=== PATIENT | female | born 1990 | race Caucasian/White ===

== ENCOUNTER 2021-05-04 14:46 | Inpatient (IN) | payer MEDICAID, OTHER ==
[2021-05-02 13:47] LABS: Hemoglobin 13.1 g/dL (12.0-15.5); Mean Corpuscular HGB CONC 33.1 g/dL (32.0-36.0); Mean Corpuscular Hemoglobin 28.7 pg (27.0-33.0); Mean Corpuscular Volume 86.8 fl (81.6-98.3); Mean Platelet Volume 11.2 fl (7.4-10.4); Platelet Count 268 10x3/uL (150-450); RBC Distribution Width 13.8 % (11.5-14.5); Red Blood Cell (RBC) Count 4.56 10x6/uL (3.90-5.03); White Blood Cell (WBC) Count 10.6 10x3/uL (3.5-10.5)
[2021-05-02 14:10] LABS: Hep B Surf Ag Non-Reactive S/CO (NonReactive)
[2021-05-02 14:11] LABS: Syphilis Antibody Nonreactive (Nonreactive); Syphilis Antibody Index 0.04 S/CO (<1.00 Non-Reactive)
[2021-05-02 14:13] LABS: HBSAg Index 0.17 S/CO (0-0.99)
[2021-05-04] MEDS ORDERED: Famotidine/PF 20 mg/2ml Vial SLOW IVP PRN (15:51)
[2021-05-04] MEDS ORDERED: hydrALAZINE 20 MG/ML VIAL SLOW IVP PRN (15:51)
[2021-05-04] MEDS ORDERED: Ondansetron PF 4 MG/2 ML Vial IVP PRN ×2 (15:51→16:55)
[2021-05-04] MEDS ORDERED: Promethazine HCl 25 MG/ML VIAL IM PRN ×2 (15:51→16:55)
[2021-05-04] MEDS ORDERED: Bicitra 30 ML UDCUP PO PRN (15:51)
[2021-05-04 15:53] VITALS: BMI 32.1
[2021-05-04] MEDS ORDERED: ceFAZolin 2 GM/Dextrose 50 ML 2 GM in Premix Bag 1 BAG IVPB SCH (16:00)
[2021-05-04] MEDS ORDERED: Lactated Ringer's 1,000 ML IV SCH (16:00)
[2021-05-04] MEDS ORDERED: Fentanyl 100 MCG/2 ML VIAL SLOW IVP PRN (16:55)
[2021-05-04] MEDS ORDERED: Naloxone HCl 0.4 mg/ml Vial IVP PRN ×2 (16:55)
[2021-05-04] MEDS ORDERED: Ketorolac Tromethamine 30 MG/ML VIAL IVP PRN (16:55)
[2021-05-04] MEDS ORDERED: L&D-Morphine 4 MG/ML VIAL SLOW IVP PRN (16:55)
[2021-05-04] MEDS ORDERED: Naloxone HCl 0.4 mg/ml Vial IV PRN (16:55)
[2021-05-04] MEDS ORDERED: Meperidine HCl/PF 25 MG/ML VIAL SLOW IVP PRN (16:55)
[2021-05-04] MEDS ORDERED: Promethazine HCl 25 MG SUPP PR PRN (16:55)
[2021-05-04] MEDS ORDERED: diphenhydrAMINE 50 MG/ML VIAL IVP PRN (16:55)
[2021-05-04] MEDS ORDERED: Ondansetron HCl/PF 4 MG/2 ML Vial IVP PRN (16:55)
[2021-05-04] MEDS ORDERED: Hydrocerin (Eucerin) Cream 120 gm Jar TOP PRN (16:55)
[2021-05-04] MEDS ORDERED: Communication Order-Pharmacy FS SCH (17:00)
[2021-05-04] MEDS ORDERED: Ketorolac Tromethamine 30 MG/ML VIAL IVP SCH (17:00)
[2021-05-04] MEDS ORDERED: Oxytocin 10 UNITS/ML VIAL ONE (18:10)
[2021-05-04] MEDS ORDERED: Ondansetron PF 4 MG/2 ML Vial ONE (18:10)
[2021-05-04] MEDS ORDERED: Phenylephrine 10 MG/ML VIAL ONE (18:10)
[2021-05-04] MEDS ORDERED: Morphine PF 10 MG/10 ML VIAL ONE (18:10)
[2021-05-04] MEDS ORDERED: Phenylephrine 40 MG/NS 250 ML 250 ML ONE (18:11)
[2021-05-04] MEDS ORDERED: Ketorolac Tromethamine 30 MG/ML VIAL ONE (18:45)
[2021-05-04] MEDS ORDERED: Erythromycin Base 0.5% Oint 1 GM TUBE ONE (19:45)
[2021-05-04] MEDS ORDERED: Phytonadione Neonatal 1 MG/0.5 ML AMP ONE (19:45)
[2021-05-04] MEDS ORDERED: NS w/ Oxytocin 30 units 500 ML ONE (21:33)
[2021-05-04] MEDS ORDERED: Simethicone Chewable 80 MG TAB PO PRN (22:41)
[2021-05-04] MEDS ORDERED: Boostrix 0.5 ML (Tdap) VIAL IM ONE (22:41)
[2021-05-04] MEDS ORDERED: Lanolin Ointment 7 GM TUBE TOP PRN (22:41)
[2021-05-04] MEDS ORDERED: Acetaminophen 325 MG TAB PO PRN (22:41)
[2021-05-04] MEDS ORDERED: Bisacodyl 10 MG SUPP PR PRN (22:41)
[2021-05-04] MEDS ORDERED: diphenhydrAMINE 25 MG CAP PO PRN (22:41)
[2021-05-04] MEDS: Docusate 100 MG CAP PO SCH (23:00)
[2021-05-04] MEDS: Ferrous Sulfate 325 MG TAB PO SCH (23:00)
[2021-05-05 04:46] LABS: Hemoglobin 11.4 g/dL (12.0-15.5); Mean Corpuscular HGB CONC 34.3 g/dL (32.0-36.0); Mean Corpuscular Hemoglobin 29.6 pg (27.0-33.0); Mean Corpuscular Volume 86.2 fl (81.6-98.3); Mean Platelet Volume 10.4 fl (7.4-10.4); Platelet Count 175 10x3/uL (150-450); RBC Distribution Width 13.5 % (11.5-14.5); Red Blood Cell (RBC) Count 3.85 10x6/uL (3.90-5.03); White Blood Cell (WBC) Count 11.1 10x3/uL (3.5-10.5)
[2021-05-05] MEDS ORDERED: HYDROcodone/Acetaminophen 5/325 mg Tablet PO PRN (05:00)
[2021-05-05] MEDS ORDERED: Acetaminophen 325 MG TAB PO PRN (07:34)
[2021-05-05] MEDS: Ferrous Sulfate 325 MG TAB PO SCH ×2 (07:44→21:41)
[2021-05-05] MEDS: Prenatal Vitamin 1 TAB PO SCH (08:35)
[2021-05-05] MEDS: Polyethylene Glycol 3350 17 GM Packet PO SCH (08:35)
[2021-05-05] MEDS: Docusate 100 MG CAP PO SCH ×2 (08:35→21:37)
[2021-05-05] MEDS: HYDROcodone/Acetaminophen 5/325 mg Tablet PO PRN ×2 (08:40→14:36)
[2021-05-05] MEDS: Ibuprofen 800 MG TAB PO SCH ×2 (14:36→21:37)
[2021-05-06] MEDS: Ibuprofen 800 MG TAB PO SCH (05:51)
[2021-05-06] MEDS: Ferrous Sulfate 325 MG TAB PO SCH (07:39)
[2021-05-06 08:17] VITALS: BP 100/55; TEMP 97.4
[2021-05-06] MEDS: Docusate 100 MG CAP PO SCH (08:33)
[2021-05-06] MEDS: Prenatal Vitamin 1 TAB PO SCH (08:34)
[2021-05-06] MEDS: HYDROcodone/Acetaminophen 5/325 mg Tablet PO PRN (08:34)
[2021-05-06] MEDS: Polyethylene Glycol 3350 17 GM Packet PO SCH (08:36)
== END 2021-05-06 12:54 | disposition home or self-care (01) | DRG 788 ==
LOC: CSHLD 14:46 → CSHPP 22:23
PROVIDERS: ADMIT Student in an Organized Health Care Education/Training Program; ATTEND Student in an Organized Health Care Education/Training Program
PROC: 10D00Z1 Extraction of Products of Conception, Low, Open Approach (ICD-10-PCS; principal; 2021-05-04)
DX: O34.211 Maternal care for low transverse scar from previous cesarean delivery (principal); Z3A.39 39 weeks gestation of pregnancy; Z37.0 Single live birth; O24.425 Gestational diabetes mellitus in childbirth, controlled by oral hypoglycemic drugs; Z79.84 Long term (current) use of oral hypoglycemic drugs; O99.824 Streptococcus B carrier state complicating childbirth; Z90.49 Acquired absence of other specified parts of digestive tract; Z79.899 Other long term (current) drug therapy; O34.13 Maternal care for benign tumor of corpus uteri, third trimester; D25.9 Leiomyoma of uterus, unspecified; O69.81X0 Labor and delivery complicated by cord around neck, without compression, not applicable or unspecified
CPT/HCPCS: 36415; 36416; 85027; 86780; 86850; 86900; 86901; 87340; J1885; J2274; J2370; J2405; J2550; J2590

== ENCOUNTER 2022-05-24 12:14 | Inpatient (IN) | payer MEDICAID, OTHER, SELFPAY ==
[2022-05-24] MEDS: Lactated Ringer's 1,000 ML IV SCH ×2 (12:43→13:22)
[2022-05-24 12:44] VITALS: BMI 33.2
[2022-05-24] MEDS ORDERED: Acetaminophen 500 MG TAB PO PRN (13:01)
[2022-05-24] MEDS ORDERED: Bicitra 30 ML UDCUP PO PRN (13:01)
[2022-05-24] MEDS ORDERED: Docusate 100 MG CAP PO PRN (13:01)
[2022-05-24] MEDS ORDERED: Diphenoxylate HCl/Atropine Tablet PO PRN (13:01)
[2022-05-24] MEDS ORDERED: hydrALAZINE 20 MG/ML VIAL SLOW IVP PRN ×2 (13:01→19:33)
[2022-05-24] MEDS ORDERED: Methylergonovine 0.2 MG/ML VIAL IM PRN (13:01)
[2022-05-24] MEDS ORDERED: Misoprostol 200 MCG TAB PR PRN (13:01)
[2022-05-24] MEDS ORDERED: Famotidine/PF 20 mg/2ml Vial SLOW IVP PRN (13:01)
[2022-05-24] MEDS ORDERED: Ondansetron PF 4 MG/2 ML Vial IVP PRN ×2 (13:01→17:00)
[2022-05-24] MEDS ORDERED: Tranexamic Acid 1,000 MG in Sodium Chloride 0.9% 250 ML 250 ML IVPB PRN (13:01)
[2022-05-24] MEDS ORDERED: Carboprost 250 MCG/ML AMP IM PRN (13:01)
[2022-05-24] MEDS ORDERED: Promethazine HCl 25 MG/ML VIAL IM PRN ×2 (13:01→17:00)
[2022-05-24] MEDS ORDERED: HYDROcodone/Acetaminophen 5/325 mg Tablet PO PRN (13:08)
[2022-05-24] MEDS ORDERED: Tranexamic Acid 1,000 MG/10 ML VIAL IVP PRN (13:12)
[2022-05-24] MEDS ORDERED: CEFAZOLIN 2 GM in Sodium Chloride 0.9% 100 ML IVPB SCH (13:15)
[2022-05-24] MEDS ORDERED: NS w/ Oxytocin 30 units 500 ML IV SCH (13:15)
[2022-05-24 13:30] LABS: Hemoglobin 11.2 g/dL (12.0-15.5); Mean Corpuscular HGB CONC 32.8 g/dL (32.0-36.0); Mean Corpuscular Hemoglobin 28.2 pg (27.0-33.0); Mean Corpuscular Volume 85.9 fl (81.6-98.3); Mean Platelet Volume 10.4 fl (7.4-10.4); Platelet Count 297 10x3/uL (150-450); RBC Distribution Width 13.4 % (11.5-14.5); Red Blood Cell (RBC) Count 3.97 10x6/uL (3.90-5.03)
[2022-05-24] MEDS ORDERED: Morphine PF 10 MG/10 ML VIAL ONE (14:15)
[2022-05-24] MEDS ORDERED: Famotidine/PF 20 mg/2ml Vial ONE (14:15)
[2022-05-24] MEDS ORDERED: Oxytocin 10 UNITS/ML VIAL ONE (14:17)
[2022-05-24] MEDS ORDERED: Ondansetron PF 4 MG/2 ML Vial ONE ×2 (14:17→16:04)
[2022-05-24] MEDS ORDERED: Phenylephrine 40 MG/NS 250 ML 250 ML ONE (14:18)
[2022-05-24 14:44] LABS: SARS-CoV-2 NAA Rapid Test Not Detected (NotDetected)
[2022-05-24] MEDS ORDERED: Ketorolac Tromethamine 30 MG/ML VIAL ONE (15:59)
[2022-05-24] MEDS ORDERED: Promethazine HCl 25 MG SUPP PR PRN (17:00)
[2022-05-24] MEDS ORDERED: Moisturizing Cream (Eucerin) 113 GM JAR TOP PRN (17:00)
[2022-05-24] MEDS ORDERED: Meperidine HCl/PF 25 MG/ML VIAL SLOW IVP PRN (17:00)
[2022-05-24] MEDS ORDERED: Ketorolac Tromethamine 30 MG/ML VIAL IVP SCH (17:00)
[2022-05-24] MEDS ORDERED: Fentanyl 100 MCG/2 ML VIAL SLOW IVP PRN (17:00)
[2022-05-24] MEDS ORDERED: Naloxone HCl 0.4 mg/ml Vial IVP PRN ×2 (17:00)
[2022-05-24] MEDS ORDERED: Naloxone HCl 0.4 mg/ml Vial IV PRN (17:00)
[2022-05-24] MEDS ORDERED: Ondansetron HCl/PF 4 MG/2 ML Vial IVP PRN (17:00)
[2022-05-24] MEDS ORDERED: diphenhydrAMINE 50 MG/ML VIAL IVP PRN (17:00)
[2022-05-24] MEDS ORDERED: Communication Order-Pharmacy FS SCH (17:00)
[2022-05-24 17:58] LABS: Syphilis Antibody Nonreactive (Nonreactive); Syphilis Antibody Index 0.04 S/CO (<1.00 Non-Reactive)
[2022-05-24 17:59] LABS: HBSAg Index 0.16 S/CO (0-0.99); Hep B Surf Ag Non-Reactive S/CO (NonReactive)
[2022-05-24] MEDS ORDERED: Boostrix 0.5 ML (Tdap) VIAL (>/=7 yrs of age) IM ONE (19:33)
[2022-05-24] MEDS ORDERED: Measles/Mumps/Rubella 10 MCG/0.5 ML VIAL SC ONE (19:33)
[2022-05-24] MEDS: Ketorolac Tromethamine 30 MG/ML VIAL IVP PRN (21:05)
[2022-05-25 04:38] LABS: Hemoglobin 10.5 g/dL (12.0-15.5); Mean Corpuscular HGB CONC 32.4 g/dL (32.0-36.0); Mean Corpuscular Hemoglobin 28.5 pg (27.0-33.0); Mean Platelet Volume 10.3 fl (7.4-10.4); Platelet Count 252 10x3/uL (150-450); RBC Distribution Width 13.4 % (11.5-14.5); Red Blood Cell (RBC) Count 3.68 10x6/uL (3.90-5.03); White Blood Cell (WBC) Count 8.7 10x3/uL (3.5-10.5)
[2022-05-25] MEDS ORDERED: HYDROcodone/Acetaminophen 5/325 mg Tablet PO PRN (05:00)
[2022-05-25] MEDS: Ketorolac Tromethamine 30 MG/ML VIAL IVP PRN ×2 (06:04→12:30)
[2022-05-25] MEDS: diphenhydrAMINE 25 MG CAP PO PRN (06:04)
[2022-05-25] MEDS ORDERED: Docusate 100 MG CAP PO SCH (11:20)
[2022-05-25] MEDS ORDERED: Prenatal Vitamin 1 TAB PO SCH (11:30)
[2022-05-25] MEDS ORDERED: Docusate Sodium 100 MG/10 ML UDCUP PO PRN (11:30)
[2022-05-25] MEDS: HYDROcodone/Acetaminophen 5/325 mg Tablet PO PRN ×2 (12:57→19:56)
[2022-05-26] MEDS: HYDROcodone/Acetaminophen 5/325 mg Tablet PO PRN (01:31)
[2022-05-26] MEDS: Docusate 100 MG CAP PO SCH ×2 (03:38→07:56)
[2022-05-26] MEDS: Ibuprofen 800 MG TAB PO SCH ×2 (04:41→13:52)
[2022-05-26] MEDS: diphenhydrAMINE 25 MG CAP PO PRN (07:56)
[2022-05-26] MEDS ORDERED: Simethicone Chewable 80 MG TAB PO PRN (07:59)
[2022-05-26] MEDS ORDERED: Prenatal Vitamin 1 TAB PO SCH (09:00)
[2022-05-26 11:48] VITALS: BP 110/64; TEMP 99.4
== END 2022-05-26 14:45 | disposition home or self-care (01) | DRG 788 ==
LOC: CSHLD 12:14 → CSHPP 18:33
PROVIDERS: ADMIT Obstetrics & Gynecology; ATTEND Obstetrics & Gynecology
PROC: 10D00Z1 Extraction of Products of Conception, Low, Open Approach (ICD-10-PCS; principal; 2022-05-24)
DX: O41.03X0 Oligohydramnios, third trimester, not applicable or unspecified (principal); O24.425 Gestational diabetes mellitus in childbirth, controlled by oral hypoglycemic drugs; O34.211 Maternal care for low transverse scar from previous cesarean delivery; O99.62 Diseases of the digestive system complicating childbirth; K66.0 Peritoneal adhesions (postprocedural) (postinfection); Z37.0 Single live birth; Z3A.37 37 weeks gestation of pregnancy; Z20.822 Contact with and (suspected) exposure to COVID-19; O99.345 Other mental disorders complicating the puerperium; F53.0 Postpartum depression; O26.893 Other specified pregnancy related conditions, third trimester
CPT/HCPCS: 36415; 36416; 51702; 85027; 86780; 86850; 86900; 86901; 87340; 90707; J1200; J1885; J2274; J2405; J2550; J2590; J3490; J7120; S0028; U0002